=== PATIENT | female | born 1970 | race Native Hawaiian/Other Pacific Islander ===

== ENCOUNTER 2020-03-10 12:12 | Emergency (ER) | payer BC ==
[~2020-03-10] VITALS: Ht 167.6 cm; Wt 81.6 kg
[2020-03-10 12:16] VITALS: TEMP 97.8
[2020-03-10 13:10] VITALS: BP 125/77
== END 2020-03-10 13:10 | disposition home or self-care (01) ==
LOC: ED 12:12
DX: M25.511 Pain in right shoulder (principal); G89.29 Other chronic pain
CPT/HCPCS: 96372; 99283; J1885; J2930

== ENCOUNTER 2020-04-07 16:40 | Emergency (ER) | payer BC ==
[~2020-04-07] VITALS: Ht 167.6 cm; Wt 77.1 kg
[2020-04-07 16:45] VITALS: TEMP 98.9
[2020-04-07] MEDS ORDERED: KETOROLAC10 MG PO (17:06)
[2020-04-07] MEDS ORDERED: WELLBUTRIN200 MG PO (17:11)
[2020-04-07] MEDS ORDERED: TRELEGY ELLIPTA1 AER INH (17:11)
[2020-04-07] MEDS ORDERED: BUSPIRONE10 MG PO (17:12)
[2020-04-07] MEDS ORDERED: MOBIC7.5 M1 PO (17:12)
[2020-04-07] MEDS ORDERED: LISI10TA11 PO (17:13)
[2020-04-07] MEDS ORDERED: LIPITOR20 MG PO (17:14)
[2020-04-07 17:43] VITALS: BP 148/98
== END 2020-04-07 17:43 | disposition home or self-care (01) ==
LOC: ED 16:40
DX: R13.19 Other dysphagia (principal)
CPT/HCPCS: 99283